=== PATIENT | male | born 1995 | race Caucasian/White ===

== ENCOUNTER 2020-03-05 15:58 | Emergency (ER) | payer SELFPAY ==
--- NOTE | 2020-03-09 13:05 | EKG ---
Test Reason : CHEST PAIN Blood Pressure : / mmHG Vent. Rate : 076 BPM Atrial Rate : 076 BPM P-R Int : 134 ms QRS Dur : 102 ms QT Int : 372 ms P-R-T Axes : 069 071 059 degrees QTc Int : 418 ms Normal sinus rhythm with sinus arrhythmia Normal ECG Confirmed by TRE DUFFY DO ([id number]), photo editor AMARIS REYEZ ([id number]) on 03/09/2020 1:04:55 PM Referred By: Confirmed By:TRE DUFFY DO
== END 2020-03-05 17:00 | disposition left against medical advice (07) ==
LOC: ERS 15:58
DX: Z53.21 Procedure and treatment not carried out due to patient leaving prior to being seen by health care provider (principal)
CPT/HCPCS: 93005